=== PATIENT | male | born 1985 | race American Indian/Alaskan Native ===

== ENCOUNTER 2017-03-05 09:09 | Emergency (ER) | payer SELFPAY ==
[2017-03-05 09:24] VITALS: BP 138/70
[2017-03-05] MEDS ORDERED: TORADOL IM ONE (11:19)
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
== END 2017-03-05 12:35 | disposition home or self-care (01) ==
LOC: ED 09:09
DX: M54.2 Cervicalgia (principal); F17.210 Nicotine dependence, cigarettes, uncomplicated
CPT/HCPCS: 96372; 99282; J1885